=== PATIENT | male | born 1950 | race Caucasian/White ===

== ENCOUNTER 2017-01-23 12:58 | Emergency (ER) | payer OTHER ==
[~2017-01-23] VITALS: Wt 84.0 kg
[2017-01-23] MEDS ORDERED: ASPIRIN 81 MG TAB PO STA (13:20)
[2017-01-23] MEDS ORDERED: NITROGLYCERIN 2% 1 GM OINT PKT TD STA (13:20)
[2017-01-23] MEDS ORDERED: NITROGLYCERIN (SL) 0.4 MG TAB SL PRN (13:30)
[2017-01-23 14:02] LABS: BASOPHILS % 0.3 % (0.0-2.0); EOSINOPHILS % 0.8 % (0.0-7.0); HEMATOCRIT 46.9 % (42.0-52.0); HEMOGLOBIN 15.5 g/dl (14.0-18.0); LYMPHOCYTES # 1.2 10^3/ul (0.8-2.9); LYMPHOCYTES % 33.1 % (15.0-51.0); MEAN CORPUSCULAR HEMOGLOBIN 27.3 pg (29.0-33.0); MEAN CORPUSCULAR VOLUME 82.7 fl (82.0-101.0); MEAN PLATELET VOLUME 9.7 fl (7.4-10.4); MONOCYTE # 0.4 10^3/ul (0.3-0.9); MONOCYTES % 11.1 % (0.0-11.0); NEUTROPHILS % 54.4 % (39.0-77.0); PLATELET COUNT 172 10^3/UL (140-415); RED BLOOD COUNT 5.67 10^6/ul (4.70-6.10); RED CELL DISTRIBUTION WIDTH 13.4 % (11.5-14.5); WHITE BLOOD COUNT 3.6 10^3/ul (4.8-10.8)
--- NOTE | 2017-01-23 14:13 | RADRPT ---
PROCEDURE: Chest x-ray CLINICAL INDICATION: Chest pain TECHNIQUE: Chest single view COMPARISON: None FINDINGS: The heart is normal in size. The pulmonary vessels are normal in caliber. The lungs are clear. Th e costophrenic angles are sharp. The visualized bony thorax is unremarkable. IMPRESSION: No acute cardiopulmonary disease. RPTAT: HH .John Richey MD, Date Time Electronically viewed and signed by .John Richey MD, MD on 01/23/2017 14:13 .W/
[2017-01-23 14:17] LABS: PARTIAL THROMBOPLASTIN TIME 32.8 Sec (25.0-35.0)
[2017-01-23 14:23] LABS: ANION GAP 18 (8-16); BLOOD UREA NITROGEN 14 mg/dl (7-20); CALCIUM 9.3 mg/dl (8.4-10.2); CARBON DIOXIDE 28 mmol/L (21-31); CHLORIDE 99 mmol/L (97-110); CREATININE 1.19 mg/dl (0.61-1.24); GLUCOSE 102 mg/dl (70-220); POTASSIUM 4.3 mmol/L (3.5-5.1); SODIUM 141 mmol/L (135-144)
[2017-01-23] MEDS ORDERED: SIMV20TA PO (14:30)
[2017-01-23] MEDS ORDERED: HYD25 PO (14:30)
[2017-01-23] MEDS ORDERED: TAMS0.4C2 PO (14:31)
[2017-01-23 14:39] LABS: TROPONIN-I < 0.012 ng/ml (0.00-0.12)
[2017-01-23 14:41] LABS: INR 1.1; PROTIME 14.2 Sec (12.2-14.2)
[2017-01-23] MEDS ORDERED: ONDANSETRON 4 MG INJ IV STA (15:04)
[2017-01-23] MEDS ORDERED: morphine 4 MG/ML VIAL IV STA (15:04)
[2017-01-23] MEDS ORDERED: ONDANSETRON 4 MG INJ IV PRN (15:30)
[2017-01-23] MEDS ORDERED: ACETAMINOPHEN 325 MG TAB PO PRN (15:30)
--- NOTE | 2017-01-23 16:02 | ERD ---
ER Documentation Chief Complaint Date/Time DATE: 01/23/17 TIME: 16:01 Chief Complaint CHEST PAIN X 3 DAYS HPI Patient is a 66-year-old male with coronary disease and hypertension who presents with midsternal chest pain. He also has upper back pain. The symptoms started 3 days ago. The patient's pain is been getting stronger. It is constant and he describes it as a "pressure". He has had no treatment as of yet. Upon review of old medical records this is the patient's first visit to the emergency department. He does not know the name of his primary doctor. ROS All systems reviewed and are negative except as per history of present illness. Medications Home Meds Reported Medications Tamsulosin Hcl* (Tamsulosin Hcl*) 0.4 Mg Cap.er.24h, 0.4 MG PO HS, CAP 01/23/17 Hydrochlorothiazide* (Hydrochlorothiazide*) 25 Mg Tab, 25 MG PO DAILY, #30 TAB 01/23/17 Simvastatin* (Zocor*) 20 Mg Tablet, 20 MG PO QHS, #30 TAB 01/23/17 Allergies Allergies: Coded Allergies: No Known Allergy (Unverified , 01/23/17) PMhx/Soc History of Surgery: Yes (eye) Hx Cardiac Disorders: Yes (htn) Hx Alcohol Use: No Hx Substance Use: No Hx Tobacco Use: No Smoking Status: Never smoker FmHx Family History: coronary disease Physical Exam Vitals Vital Signs Date Time Temp Pulse Resp B/P Pulse Ox O2 Delivery O2 Flow Rate FiO2 01/23/17 16:11 98.0 64 18 115/76 99 Room Air 01/23/17 15:28 63 18 115/76 97 Room Air 01/23/17 13:00 98.0 76 18 124/68 99 Physical Exam Const: Mild distress Head: Atraumatic Eyes: Normal Conjunctiva ENT: Normal External Ears, Nose and Mouth. Neck: Full range of motion..~ No meningismus. Resp: Clear to auscultation bilaterally Cardio: Regular rate and rhythm, no murmurs Abd: Soft, non tender, non distended. Normal bowel sounds Skin: No petechiae or rashes Back: No midline or flank tenderness Ext: No cyanosis, or edema Neur: Awake and alert Psych: Normal Mood and Affect Result Diagram: 01/23/17 1350 01/23/17 1350 Results 24 hrs Laboratory Tests Test 01/23/17 13:50 White Blood Count 3.610^3/ul Red Blood Count 5.6710^6/ul Hemoglobin 15.5g/dl Hematocrit 46.9% Mean Corpuscular Volume 82.7fl Mean Corpuscular Hemoglobin 27.3pg Mean Corpuscular Hemoglobin Concent 33.0g/dl Red Cell Distribution Width 13.4% Platelet Count 81010^3/UL Mean Platelet Volume 9.7fl Neutrophils % 54.4% Lymphocytes % 33.1% Monocytes % 11.1% Eosinophils % 0.8% Basophils % 0.3% Nucleated Red Blood Cells % 0.0/100WBC Neutrophils # 2.010^3/ul Lymphocytes # 1.210^3/ul Monocytes # 0.410^3/ul Eosinophils # 0.010^3/ul Basophils # 0.010^3/ul Nucleated Red Blood Cells # 0.010^3/ul Prothrombin Time 14.2Sec Prothrombin Time Ratio 1.0 INR International Normalized Ratio 1.10 Activated Partial Thromboplast Time 32.8Sec Sodium Level 141mmol/L Potassium Level 4.3mmol/L Chloride Level 99mmol/L Carbon Dioxide Level 28mmol/L Anion Gap 18 Blood Urea Nitrogen 14mg/dl Creatinine 1.19mg/dl Glucose Level 102mg/dl Calcium Level 9.3mg/dl Troponin I < 0.012ng/ml Current Medications Medications (Trade) Dose Ordered Sig/Scarlett Route PRN Reason Start Time Stop Time Status Last Admin Dose Admin Aspirin (Aspirin) 162 mg ONCE STAT PO 01/23/17 13:20 01/23/17 13:21 DC 01/23/17 13:40 Nitroglycerin (Nitroglycerin 2% Oint) 1 inch ONCE STAT TD 01/23/17 13:20 01/23/17 13:21 DC 01/23/17 13:41 Nitroglycerin (Nitroglycerin (Sl Tab) 0.4 Mg) 1 tab Q5M UP TO 3 DOSES PRN SL CHEST PAIN 01/23/17 13:30 01/23/17 13:42 Morphine Sulfate (morphine) 4 mg ONCE STAT IV 01/23/17 15:04 01/23/17 15:05 DC 01/23/17 15:23 Ondansetron HCl (Zofran Inj) 4 mg ONCE STAT IV 01/23/17 15:04 01/23/17 15:05 DC 01/23/17 15:23 Ondansetron HCl (Zofran Inj) 4 mg ER BRIDGE PRN IV NAUSEA AND/OR VOMITING 01/23/17 15:30 01/24/17 15:29 Acetaminophen (Tylenol Tab) 650 mg ER BRIDGE PRN PO MILD PAIN/FEVER 01/23/17 15:30 01/24/17 15:29 Procedures/MDM EKG #1 read by me: Rate/Rhythm: Regular rate and rhythm at a rate of 83 Intervals: Normal Impression: No evidence of ischemia or arrhythmia EKG #2 read by me: Rate/Rhythm: Regular rate and rhythm at a rate of 63 Intervals: Normal Impression: No evidence of ischemia or arrhythmia Chest x-ray shows no obvious pneumonia or pneumothorax per radiology. Patient is a 66-year-old male with coronary disease and hypertension who presents with chest pain. I want to admit him to the hospital and I did a full workup including laboratory studies, EKG, and chest x-ray. The patient was given aspirin nitroglycerin. I spoke with Dr. Cherry for admission as the patient has [facility] insurance. However after the patient was admitted he decided he did not want to stay in the hospital and is going to leave AGAINST MEDICAL ADVICE. He was informed of the possibility of heart attack as well as and understands the risks of leaving but still wants to leave AGAINST MEDICAL ADVICE. He should follow-up with his primary doctor within 24 hours for reevaluation. He can return sooner if he would like to be admitted. Departure Diagnosis: Primary Impression: Chest pain Chest pain type: unspecified Qualified Code: R07.9 - Chest pain, unspecified type Condition: Fair Patient Instructions: Chest Pain, Uncertain Cause Referrals: Your doctor Additional Instructions: FOLLOW UP WITH YOUR PRIMARY CARE PHYSICIAN TOMORROW.Return to this facility if you are not improving as expected. KENIA LITTLE MD Jan 23, 2017 16:02
[2017-01-23 16:11] VITALS: BP 115/76; PULSE 64; RESP 18; TEMP 98
== END 2017-01-23 16:11 | disposition left against medical advice (07) ==
LOC: E/R 12:58
DX: R07.2 Precordial pain (principal); I10 Essential (primary) hypertension; I25.10 Atherosclerotic heart disease of native coronary artery without angina pectoris; R07.9 Chest pain, unspecified
CPT/HCPCS: 71010; 80048; 84484; 85025; 85610; 85730; J2270; J2405; Z7610; 36415; 93005; 96374; 96375